=== PATIENT | male | born 1990 | race African-American/Black ===

== ENCOUNTER 2017-10-01 04:10 | Emergency (ER) | payer OTHER ==
[~2017-10-01] VITALS: Ht 167.6 cm; Wt 95.7 kg
[2017-10-01 04:15] VITALS: Ht 167.6 cm; Wt 95.7 kg
[2017-10-01 05:59] VITALS: BP 120/89
== END 2017-10-01 05:45 | disposition home or self-care (01) ==
LOC: ED 04:10
DX: J20.9 Acute bronchitis, unspecified (principal); J45.909 Unspecified asthma, uncomplicated
CPT/HCPCS: Q0092